=== PATIENT | female | born 1975 | race Two or more races ===

== ENCOUNTER 2024-03-26 20:35 | Inpatient (IN) | payer MEDICAID, OTHER ==
[~2024-03-26] VITALS: Ht 154.9 cm; Wt 57.4 kg
[2024-03-26] MEDS: cloNIDine HCL 0.1 MG TAB PO ONE (21:45)
[2024-03-26 21:49] LABS: Basophils # (auto) 0.1 10 ^3/uL (0-0.2); Basophils % (auto) 0.6 % (0.0-2.0); Eosinophils # (auto) 0.2 10 ^3/uL (0-0.8); Eosinophils % (auto) 1.7 % (0.0-7.0); Hematocrit 40.9 % (36.0-46.0); Hemoglobin 14.5 g/dL (12.2-16.2); Lymphocytes # (auto) 2.9 10 ^3/uL (0.4-5.4); Lymphocytes % (auto) 30.2 % (10.0-50.0); Mean Corpuscular Hemoglobin 33.8 pg (28.0-32.0); Mean Corpuscular Hgb Conc. 35.5 g/dL (32.0-36.0); Mean Corpuscular Volume 95.2 fL (80.0-100.0); Monocytes # (auto) 0.5 10 ^3/uL (0-1.3); Monocytes % (auto) 5.1 % (0.0-12.0); Neutrophils # (auto) 6.1 10 ^3/uL (1.6-8.6); Neutrophils % (auto) 62.4 % (37.0-80.0); Platelet Count (auto) 328 10^3/uL (140-450); Red Blood Cells 4.29 10^6/uL (4.0-5.20); Red Cell Distribution Width 12.9 % (11.8-14.3); White Blood Cell 9.8 10^3/uL (4.4-10.8)
[2024-03-26 21:57] LABS: Chloride 109 mmol/L (98-107); Potassium 3.6 mmol/L (3.5-5.1); Sodium 142 mmol/L (136-145)
[2024-03-26 21:58] LABS: Anion Gap 7 (5-15); Calcium 9.8 mg/dL (8.7-10.4); Carbon Dioxide 26 mmol/L (20-30)
[2024-03-26 22:03] LABS: BUN/Creatinine Ratio 13.8 (10.0-20.0); Blood Urea Nitrogen 11 mg/dL (9-23); Glucose 93 mg/dL (74-106)
[2024-03-26] MEDS ORDERED: ACETAMINOPHEN 325 MG TAB PO PRN (23:15)
[2024-03-26] MEDS ORDERED: ONDANSETRON HCL 4 MG/2 ML VIAL IV PRN (23:15)
[2024-03-26] MEDS ORDERED: HYDROcodone-ACET 5/325MG TAB PO PRN (23:15)
[2024-03-26] MEDS ORDERED: MORPHINE SULFATE INJ 2 MG/ml SYRG IV PRN (23:15)
[2024-03-26] MEDS ORDERED: DOCUSATE SOD 100 MG CAP PO PRN (23:15)
[2024-03-26] MEDS ORDERED: NITROGLYCERIN 0.4 MG SL TAB SL PRN (23:15)
[2024-03-26] MEDS ORDERED: hydrALAZINE HCL 20 MG/ML VL IV PRN (23:15)
[2024-03-27] MEDS: SODIUM CHLOR 0.9% PF (SALINE LOCK) 10ML VIAL/SYR IV SCH (06:08)
[2024-03-27 06:21] LABS: Basophils # (auto) 0 10 ^3/uL (0-0.2); Basophils % (auto) 0.5 % (0.0-2.0); Eosinophils # (auto) 0.2 10 ^3/uL (0-0.8); Eosinophils % (auto) 1.8 % (0.0-7.0); Hematocrit 37.9 % (36.0-46.0); Hemoglobin 13.3 g/dL (12.2-16.2); Lymphocytes % (auto) 32.9 % (10.0-50.0); Mean Corpuscular Hemoglobin 33.6 pg (28.0-32.0); Mean Corpuscular Hgb Conc. 35.1 g/dL (32.0-36.0); Mean Corpuscular Volume 95.7 fL (80.0-100.0); Monocytes # (auto) 0.4 10 ^3/uL (0-1.3); Monocytes % (auto) 4.5 % (0.0-12.0); Neutrophils # (auto) 5.5 10 ^3/uL (1.6-8.6); Neutrophils % (auto) 60.3 % (37.0-80.0); Nucleated Red Blood Cells % 0.1 %; Platelet Count (auto) 294 10^3/uL (140-450); Red Blood Cells 3.95 10^6/uL (4.0-5.20); Red Cell Distribution Width 12.9 % (11.8-14.3)
[2024-03-27 06:40] LABS: Alanine Aminotransferase 19 U/L (7-40); Albumin 4.3 g/dL (3.2-4.8); Alkaline Phosphatase 73 U/L (46-116); Anion Gap 7 (5-15); Aspartate Aminotransferase 19 U/L (13-40); BUN/Creatinine Ratio 19.1 (10.0-20.0); Blood Urea Nitrogen 13 mg/dL (9-23); Calcium 9.3 mg/dL (8.7-10.4); Carbon Dioxide 25 mmol/L (20-30); Chloride 109 mmol/L (98-107); Glucose 86 mg/dL (74-106); Potassium 4.4 mmol/L (3.5-5.1); Sodium 141 mmol/L (136-145)
[2024-03-27 06:41] LABS: Bilirubin, Total 0.7 mg/dL (0.2-1.0); Total Protein 7.1 g/dL (5.7-8.2)
[2024-03-27] MEDS: ASPirin 81 mg TAB PO SCH (10:27)
[2024-03-27] MEDS: LOSARTAN POTASSIUM 25 MG TAB PO SCH (12:46)
[2024-03-27 17:05] LABS: Amphetamine Screen, Urine Neg (NEGATIVE); Barbiturate Scree,Urine Neg (NEGATIVE); Benzodiazephine Screen, Urine Neg (NEGATIVE); Cannabinoid Screen, Urine Neg (NEGATIVE); Cocaine Screen, Urine Neg (NEGATIVE); Opiate Scree,Urine Neg (NEGATIVE); Phencyclidine Screen, Urine Neg (NEGATIVE)
[2024-03-27] MEDS: ATORVASTATIN 20 MG TAB PO SCH (22:14)
[2024-03-27 22:25] VITALS: PULSE 70; RESP 19; O2SAT 99
[2024-03-27 23:22] VITALS: BP 139/84; PULSE 70; RESP 19; TEMP 97.7; O2SAT 99
[2024-03-28] VITALS (8 sets, daily range): BP systolic 108–133; BP diastolic 75–88; PULSE 62–79; RESP 18–20; TEMP 36.7; O2SAT 94–98
[2024-03-28] MEDS ORDERED: ATOR10TA52 PO (00:31)
[2024-03-28] MEDS ORDERED: LOS25T PO (11:25)
[2024-03-28] MEDS ORDERED: SUM25T PO (11:25)
== END 2024-03-28 15:00 | disposition home or self-care (01) | DRG 54 ==
LOC: ER 20:35 → TELE 23:15 → TELE-EAST 03-27 22:24
PROVIDERS: ADMIT Nurse Practitioner Family; ATTEND Internal Medicine
DX: G43.909 Migraine, unspecified, not intractable, without status migrainosus (principal); E78.5 Hyperlipidemia, unspecified; I16.0 Hypertensive urgency; R20.0 Anesthesia of skin; R20.2 Paresthesia of skin; Z82.49 Family history of ischemic heart disease and other diseases of the circulatory system; Z83.3 Family history of diabetes mellitus; Z79.82 Long term (current) use of aspirin; Z79.899 Other long term (current) drug therapy
CPT/HCPCS: 36415; 70450; 70551; 71045; 80048; 80053; 80307; 82962; 84484; 84702; 85025; 93306; 93886; 99291; G0378